=== PATIENT | female | born 1975 | race African-American/Black ===

== ENCOUNTER 2017-10-19 10:05 | Emergency (ER) | payer MEDICAID, OTHER ==
[~2017-10-19] VITALS: Ht 162.6 cm; Wt 64.0 kg
[2017-10-19 12:12] VITALS: BP 111/63
== END 2017-10-19 12:13 | disposition home or self-care (01) ==
LOC: ER 10:05
DX: T63.301A Toxic effect of unspecified spider venom, accidental (unintentional), initial encounter (principal); L03.115 Cellulitis of right lower limb; Y92.89 Other specified places as the place of occurrence of the external cause; F17.210 Nicotine dependence, cigarettes, uncomplicated
CPT/HCPCS: 99283

== ENCOUNTER 2022-04-12 22:09 | Emergency (ER) | payer MEDICAID ==
[~2022-04-12] VITALS: Ht 162.6 cm; Wt 68.0 kg
[2022-04-13] MEDS ORDERED: LIDOCAINE HCL/PF 1% 10 MG/ML 5ML VIAL INFIL ONE
[2022-04-13] MEDS ORDERED: TOPUD PO (00:43)
[2022-04-13] MEDS ORDERED: CLINDAMYCIN 600 MG in DEXTROSE 5% WATER 50 ML IV ONE ×2 (02:45→08:30)
[2022-04-13] MEDS ORDERED: CLINDAMYCIN 600MG PREMIX 50 ML IV NR (03:15)
[2022-04-13] MEDS: MORPHINE SULFATE 4 MG/ML CPJ (NOT FOR IM USE) IV ONE ×2 (07:50→08:17)
[2022-04-13 11:10] VITALS: BP 110/50
== END 2022-04-13 11:08 | disposition left against medical advice (07) ==
LOC: ER 22:09 → CANBEDREQ 04-14 17:46
DX: S61.213A Laceration without foreign body of left middle finger without damage to nail, initial encounter (principal); W25.XXXA Contact with sharp glass, initial encounter; Y93.89 Activity, other specified; Y92.89 Other specified places as the place of occurrence of the external cause; Y99.8 Other external cause status; J45.909 Unspecified asthma, uncomplicated
CPT/HCPCS: 12001; 73120; 96365; 96367; 96375; 99285; J2270; J3490; J7060; Z7610